=== PATIENT | female | born 1985 | race Caucasian/White ===

== ENCOUNTER 2019-05-20 19:27 | Observation (INO) | payer OTHER ==
[2019-05-20] MEDS ORDERED: NORMAL SALINE 1000 ML 1,000 ML IV ONE (19:54)
[2019-05-20] MEDS ORDERED: ONDANSETRON HCL INJ/PF 4 MG/2 ML SDV IV ONE (19:54)
[2019-05-20] MEDS ORDERED: MORPHINE SULFATE 10 MG/ML INJ IV ONE ×2 (19:54→20:13)
--- NOTE | 2019-05-20 19:57 | ER Document Report ---
ED Medical Screen (RME) - General Chief Complaint: Abdominal Pain Stated Complaint: POSSIBLE APPENDIX RUPTURE Time Seen by Provider: 05/20/19 19:50 Primary Care Provider: DAMION SHARMA MD [Primary Care Provider] - Follow up as needed - [facility] Notes: 05/20/19 19:55 33-year-old female to the emergency department with complaints of right lower quadrant abdominal pain that is getting steadily worse for the past 2 days. She states that 2 days ago she started to have abdominal pain in the middle of her abdomen around her bellybutton. She states that she just had some constipation so she try to take some MiraLAX. She states that she started to feel worse this morning and thought that maybe she was having a stomach virus. She denies any nausea or vomiting. She denies any diarrhea. She states that she has had anorexia. She is only eaten 5 saltines today. She states that the pain then migrated to her right lower side. She states that she went to urgent care and they sent her here for evaluation for appendicitis. She has never had surgery on her abdomen before. She denies any fevers or chills. I performed a brief medical screening exam on the patient and determined that she will need further evaluation by main side provider. I placed initial orders to help expedite her care. Patient with positive tenderness to palpation to the right lower quadrant and suprapubic abdomen. She is guarding. She is very uncomfortable in the triage room. - Related Data Allergies/Adverse Reactions: No Known Allergies Allergy (Verified 09/19/12 20:45) Past Medical History - Past Medical History Cardiac Medical History: Reports: Hx Hypercholesterolemia - Immunizations Hx Diphtheria, Pertussis, Tetanus Vaccination: Yes Physical Exam - Vital signs Vitals: Temp Pulse Resp BP Pulse Ox 97.4 F 83 17 133/81 H 99 05/20/19 19:34 05/20/19 19:34 05/20/19 19:34 05/20/19 19:34 05/20/19 19:34 Course - Vital Signs Vital signs: Temp Pulse Resp BP Pulse Ox 97.4 F 83 17 133/81 H 99 05/20/19 19:34 05/20/19 19:34 05/20/19 19:34 05/20/19 19:34 05/20/19 19:34 Doctor's Discharge - Discharge Referrals: DAMION SHARMA MD [Primary Care Provider] - Follow up as needed
[2019-05-20 20:40] LABS: ABSOLUTE BASOPHILS # (AUTO) 0.1 10^3/uL (0.0-0.2); ABSOLUTE LYMPHOCYTES (AUTO) 1.9 10^3/uL (0.5-4.7); ABSOLUTE MONOCYTES (AUTO) 0.7 10^3/uL (0.1-1.4); ABSOLUTE NEUT (AUTO) 10.3 10^3/uL (1.7-8.2); BASOPHILS % (AUTO) 0.5 % (0-2); EOSINOPHILS % (AUTO) 0.3 % (0-6); HEMATOCRIT 40.4 % (36.0-47.0); HEMOGLOBIN 13.9 g/dL (12.0-15.5); LYMPHOCYTES % (AUTO) 14.5 % (13-45); MEAN CORPUSCULAR HEMOGLOBIN 30.4 pg (27.0-33.4); MEAN CORPUSCULAR HGB CONC 34.3 g/dL (32.0-36.0); MEAN CORPUSCULAR VOLUME 89 fl (80-97); MONOCYTES % (AUTO) 5.5 % (3-13); PLATELET COUNT 277 10^3/uL (150-450); RED BLOOD COUNT 4.57 10^6/uL (3.72-5.28); RED CELL DISTRIBUTION WIDTH 12.7 % (11.5-14.0); SEGMENTED NEUTROPHILS % (AUTO) 79.2 % (42-78); TOTAL CELLS COUNTED % (AUTO) 100 %
--- NOTE | 2019-05-20 21:43 | RADIOLOGY REPORT (SQ) ---
EXAM DESCRIPTION: CT abdomen and pelvis with IV contrast CLINICAL HISTORY: 33 years Female RLQ abd pain COMPARISON: None. TECHNIQUE: Contiguous axial images obtained through the abdomen and pelvis following IV contrast. 90 mL Omnipaque administered IV. Reformatted images obtained. This exam was performed according to our department optimization program which includes automated exposure control, adjustment of the mA and/or kv according to patient size and/or use of iterative reconstruction technique. FINDINGS: The visualized lung bases are clear. The liver appears unremarkable. The spleen and pancreas appear unremarkable. No adrenal masses. The kidneys appear unremarkable. No hydronephrosis. The gallbladder is visualized. No aneurysmal dilatation of the aorta. No bowel obstruction. The appendix appears dilated to a diameter of 1.2 cm on axial imaging. The appendiceal wall appears hyperemic. There are inflammatory changes within the adjacent mesentery. Findings are consistent with acute appendicitis. No free air to suggest perforation. Small volume pelvic free fluid is nonspecific and may be related to inflammatory changes. No suspicious lytic or blastic osseous lesions are identified. IMPRESSION: Findings compatible with acute appendicitis.
--- NOTE | 2019-05-20 21:49 | ER Document Report ---
ED General - General Chief Complaint: Abdominal Pain Stated Complaint: POSSIBLE APPENDIX RUPTURE Time Seen by Provider: 05/20/19 19:50 Primary Care Provider: DAMION SHARMA MD [ACTIVE STAFF] - Follow up as needed Notes: 33-year-old female presents with right lower quadrant pain for the past 3 days. Patient states associated nausea and subjective fever. Denies vomiting, diarrhea, constipation. Patient states she initially thought she may have been constipated and took a laxative with no improvement. Patient went to urgent care who sent her over to the ER for possible appendicitis. Patient denies any abdominal surgeries. - Related Data Allergies/Adverse Reactions: No Known Allergies Allergy (Verified 09/19/12 20:45) Home Medications: synthroid. effexor Past Medical History - Social History Smoking Status: Never Smoker Frequency of alcohol use: Social Family History: Reviewed & Not Pertinent Patient has suicidal ideation: No Patient has homicidal ideation: No - Past Medical History Cardiac Medical History: Reports: Hx Hypercholesterolemia - Immunizations Hx Diphtheria, Pertussis, Tetanus Vaccination: Yes Review of Systems - Review of Systems Notes: Constitutional: Negative for fever. HENT: Negative for sore throat. Eyes: Negative for visual changes. Cardiovascular: Negative for chest pain. Respiratory: Negative for shortness of breath. Gastrointestinal: Positive for abdominal pain and nausea. Negative for vomiting or diarrhea. Genitourinary: Negative for dysuria. Musculoskeletal: Negative for back pain. Skin: Negative for rash. Neurological: Negative for headaches, weakness or numbness. 10 point ROS negative except as marked above and in HPI. Physical Exam - Vital signs Vitals: Temp Pulse Resp BP Pulse Ox 97.4 F 83 17 133/81 H 99 05/20/19 19:34 05/20/19 19:34 05/20/19 19:34 05/20/19 19:34 05/20/19 19:34 - Notes Notes: GENERAL: Well-appearing, well-nourished and in no acute distress. HEAD: Atraumatic, normocephalic. EYES: Pupils equal round and reactive to light, extraocular movements intact, sclera anicteric, conjunctiva are normal. NECK: Normal range of motion, supple without lymphadenopathy or JVD. ABDOMEN: Soft, tenderness to right lower quadrant with guarding. No masses appreciated. EXTREMITIES: Normal range of motion, no pitting or edema. No clubbing or cyanosis. NEUROLOGICAL: Cranial nerves II through XII grossly intact. Normal speech, normal gait. PSYCH: Normal mood, normal affect. SKIN: Warm, Dry, normal turgor, no rashes or lesions noted. Course - Re-evaluation Re-evalutation: 05/20/19 33-year-old female presents with right lower quadrant pain with nausea and subjective fever. Abdomen soft tenderness to right lower quadrant with guarding. PE otherwise unremarkable. Mild leukocytosis. Patient is afebrile. Pain is currently controlled at this time. Ertapenem was ordered. CMP was hemolyzed and so is now being redrawn. Patient is also can provide a urine spec imen to get a urine . 05/20/19 21:[address] shows appendicitis without perforation. 05/20/19 22:[address] De La Garza who will come down to see pt. - Vital Signs Vital signs: Temp Pulse Resp BP Pulse Ox 97.4 F 83 15 119/66 99 05/20/19 19:34 05/20/19 19:34 05/20/19 22:18 05/20/19 20:48 05/20/19 22:19 - Laboratory Result Diagrams: 05/20/19 20:33 05/20/19 22:35 Laboratory results interpreted by me: 05/20/19 05/20/19 20:33 22:10 WBC 13.0 H Absolute Neuts (auto) 10.3 H Seg Neutrophils % 79.2 H Urine Ketones 20 H Urine Blood SMALL H Discharge - Discharge Clinical Impression: Appendicitis Qualifiers: Appendicitis type: acute appendicitis Acute appendicitis type: other Qualified Code(s): K35.890 - Other acute appendicitis without perforation or gangrene Condition: Fair Disposition: ADMITTED INPATIENT Admitting Provider: Surgicalist - Dr. Chico De La Garza Unit Admitted: OR Referrals: DAMION SHARMA MD [ACTIVE STAFF] - Follow up as needed
[2019-05-20] MEDS ORDERED: ERTAPENEM SODIUM INJ 1 GM VIAL IV ONE (21:51)
[2019-05-20 22:43] LABS: APPEARANCE,URINE CLEAR; BILIRUBIN,URINE NEGATIVE (NEGATIVE); COLOR,URINE YELLOW; GLUCOSE, URINE NEGATIVE (NEGATIVE); KETONES,URINE 20 mg/dL (NEGATIVE); LEUKOCYTE ESTERASE,URINE NEGATIVE (NEGATIVE); NITRITE,URINE NEGATIVE (NEGATIVE); PROTEIN,URINE NEGATIVE (NEGATIVE); UROBILINOGEN,URINE NEGATIVE mg/dL (<2.0)
[2019-05-20 22:51] LABS: URINE SPECIFIC GRAVITY > 1.060
--- NOTE | 2019-05-20 22:52 | PDOC H&P ---
History of Present Illness Admission Date/PCP: 05/20/19 Patient complains of: abdominal pain History of Present Illness: DEEDEE STALEY is a 33 year old female3 presents with right lower quadrant pain for the past 3 days. Patient states associated nausea and subjective fever. Denies vomiting, diarrhea, constipation. Patient states she initially thought she may have been constipated and took a laxative with no improvement. Patient went to urgent care who sent her over to the ER for possible appendicitis. Patient denies any abdominal surgeries. Past Medical History Cardiac Medical History: Reports: Hyperlipidema Social History Smoking Status: Never Smoker Family History Family History: Reviewed & Not Pertinent Parental Family History Reviewed: No Children Family History Reviewed: NA Sibling(s) Family History Reviewed.: NA Medication/Allergy Home Medications: Simvastatin [Zocor 10 mg Tablet] 10 mg PO QHS 09/19/12 Allergies/Adverse Reactions: No Known Allergies Allergy (Verified 09/19/12 20:45) Review of Systems Constitutional: ABSENT: as per HPI, anorexia, chills, fatigue, fever(s), headache(s), night sweats, weakness, weight gain, weight loss, other Eyes: ABSENT: as per HPI, visual disturbances, other Ears: ABSENT: as per HPI, hearing changes, other Nose, Mouth, and Throat: ABSENT: as per HPI, headache(s), mouth pain, sore throat, vertigo, other Cardiovascular: ABSENT: as per HPI, chest pain, dyspnea on exertion, edema, orthropnea, palpitations, other Gastrointestinal: PRESENT: abdominal pain Genitourinary: ABSENT: as per HPI, difficulty urinating, dysuria, hematuria, nocturia, other Musculoskeletal: ABSENT: as per HPI, back pain, deformity, joint swelling, muscle weakness, other Integumentary: ABSENT: as per HPI, diaphoresis, erythema, lesions, pruritus, rash, wounds, other Neurological: ABSENT: as per HPI, abnormal gait, abnormal movements, abnormal speech, confusion, convulsions, dizziness, focal weakness, frequent falls, lack of coordination, memory loss, numbness, paresthesias, restless legs, syncope, tingling, tremor(s), vertigo, weakness, other Psychiatric: ABSENT: as per HPI, anxiety, depression, hallucinations, homidical ideation, suicidal ideation, other Endocrine: ABSENT: as per HPI, cold intolerance, flushing, heat intolerance, menstrual abnormalities, polydipsia, polyphagia, polyuria, other Allergic/Immunologic: ABSENT: as per HPI, seasonal rhinorrhea, other Physical Exam Vital Signs: Temp Pulse Resp BP Pulse Ox 97.4 F 83 15 119/66 99 05/20/19 19:34 05/20/19 19:34 05/20/19 22:18 05/20/19 20:48 05/20/19 22:19 Intake & Output 05/19/19 05/20/19 05/21/19 06:59 06:59 06:59 Weight 79.379 kg General appearance: PRESENT: mild distress Head exam: PRESENT: normocephalic Eye exam: PRESENT: EOMI Ear exam: PRESENT: normal external ear exam Mouth exam: PRESENT: moist Neck exam: PRESENT: full ROM Respiratory exam: PRESENT: clear to auscultation [place] Cardiovascular exam: PRESENT: RRR Pulses: PRESENT: normal radial pulses, normal femoral pulses Vascular exam: PRESENT: normal capillary refill GI/Abdominal exam: PRESENT: firm, guarding, tenderness - rlq Rectal exam: PRESENT: deferred Extremities exam: PRESENT: full ROM Musculoskeletal exam: PRESENT: full ROM Neurological exam: PRESENT: alert, awake, oriented to person, oriented to place Psychiatric exam: PRESENT: appropriate affect Skin exam: PRESENT: dry Results Laboratory Results: 05/20/19 20:33 05/20/19 05/20/19 05/20/19 20:33 20:33 20:33 WBC 13.0 H RBC 4.57 Hgb 13.9 Hct 40.4 MCV 89 MCH 30.4 MCHC 34.3 RDW 12.7 Plt Count 277 Seg Neutrophils % 79.2 H Sodium Cancelled Potassium Cancelled Chloride Cancelled Carbon Dioxide Cancelled Anion Gap Cancelled BUN Cancelled Creatinine Cancelled Est GFR ( Amer) Cancelled Est GFR (Non-Af Amer) Cancelled Glucose Cancelled Calcium Cancelled Total Bilirubin Cancelled AST Cancelled Alkaline Phosphatase Cancelled Total Protein Cancelled Albumin Cancelled Serum HCG, Qual Cancelled Urine Color Urine Appearance Urine pH Urine Protein Urine Glucose (UA) Urine Ketones Urine Blood Urine Nitrite Ur Leukocyte Esterase Urine WBC (Auto) Urine RBC (Auto) 05/20/19 22:10 WBC RBC Hgb Hct MCV MCH MCHC RDW Plt Count Seg Neutrophils % Sodium Potassium Chloride Carbon Dioxide Anion Gap BUN Creatinine Est GFR ( Amer) Est GFR (Non-Af Amer) Glucose Calcium Total Bilirubin AST Alkaline Phosphatase Total Protein Albumin Serum HCG, Qual Urine Color YELLOW Urine Appearance CLEAR Urine pH 8.0 Urine Protein NEGATIVE Urine Glucose (UA) NEGATIVE Urine Ketones 20 H Urine Blood SMALL H Urine Nitrite NEGATIVE Ur Leukocyte Esterase NEGATIVE Urine WBC (Auto) 1 Urine RBC (Auto) 3 Impressions: Abdomen/Pelvis CT 05/20/19 19:53 IMPRESSION: Findings compatible with acute appendicitis. Assessment & Plan - Diagnosis (1) Appendicitis Qualifiers: Appendicitis type: acute appendicitis Acute appendicitis type: other Qualified Code(s): K35.890 - Other acute appendicitis without perforation or gangrene; K35.89 - Other acute appendicitis - Plan Summary Plan Summary: impression acute appendicitis plan to or for laparoscopic appendectomy risks beniftis of bleeding, injury to adjacent organs, ureters, small bowel bladder, kidneysl, colon, mi, stroke, discussed and she agrees to proceed.
[2019-05-20 23:15] LABS: ALBUMIN 3.8 g/dL (3.5-5.0); ALKALINE PHOSPHATASE 74 U/L (38-126); ANION GAP 11 (5-19); ASPARTATE AMINO TRANSFERASE 23 U/L (14-36); BILIRUBIN,DIRECT 0.2 mg/dL (0.0-0.4); BILIRUBIN,TOTAL 0.6 mg/dL (0.2-1.3); BLOOD UREA NITROGEN 9 mg/dL (7-20); CALCIUM 9.3 mg/dL (8.4-10.2); CARBON DIOXIDE 23 mmol/L (22-30); CHLORIDE 103 mmol/L (98-107); GLUCOSE 103 mg/dL (75-110); POTASSIUM 3.7 mmol/L (3.6-5.0); TOTAL PROTEIN 6.7 g/dL (6.3-8.2)
[2019-05-21] MEDS ORDERED: MIDAZOLAM 2 MG/2 ML INJ ONE (00:14)
[2019-05-21] MEDS ORDERED: FENTANYL CITRATE INJ/PF 250 MCG/5 ML AMPULE ONE (00:14)
[2019-05-21] MEDS ORDERED: PROPOFOL INJ 200 MG/20 ML VIAL IV ONE (00:15)
[2019-05-21] MEDS ORDERED: HYDROMORPHONE HCL INJ/PF 2 MG/ML AMPULE ONE (00:15)
[2019-05-21] MEDS ORDERED: MORPHINE SULFATE 10 MG/ML INJ IV PRN ×2 (00:52→01:39)
[2019-05-21] MEDS ORDERED: PROMETHAZINE HCL INJ 25 MG/1 ML VIAL IV PRN (00:52)
[2019-05-21] MEDS ORDERED: FENTANYL CITRATE INJ/PF 100 MCG/2 ML AMPUL IV PRN ×3 (00:52)
[2019-05-21] MEDS ORDERED: DIPHENHYDRAMINE HCL 50 MG/ML VIAL IV PRN (00:52)
[2019-05-21] MEDS ORDERED: MEPERIDINE HCL/PF INJ 25 MG/1 ML DISP.SYRIN IV PRN (00:52)
[2019-05-21] MEDS ORDERED: BUPIVACAINE INJ/PF LIPOSOME/PF 266 MG/20 ML SDV ONE (01:04)
[2019-05-21] MEDS ORDERED: OXYCODONE-ACETAMINOPHEN 5-325 MG TABLET PO PRN (01:39)
[2019-05-21] MEDS ORDERED: ACETAMINOPHEN 1,000 MG/100 ML RTUPB IV ONE ×2 (01:39→02:00)
[2019-05-21] MEDS ORDERED: POTASSI CL 20 MEQ/D5-1/2NS 1L 1,000 ML IV PRN (01:39)
[2019-05-21] MEDS ORDERED: ONDANSETRON HCL INJ/PF 4 MG/2 ML SDV IV PRN (01:39)
[2019-05-21] MEDS: FENTANYL CITRATE INJ/PF 100 MCG/2 ML AMPUL ONE ×2 (01:40→01:45)
--- NOTE | 2019-05-21 01:48 | Operative Report ---
Nonrecallable Operative Report DATE OF SURGERY: 05/21/19 PREOPERATIVE DIAGNOSIS: Acute appendicitis POSTOPERATIVE DIAGNOSIS: Acute appendicitis OPERATION: Laparoscopic appendectomy SURGEON: LIZ KRAMER ANESTHESIA: GA TISSUE REMOVED OR ALTERED: Appendix COMPLICATIONS: None ESTIMATED BLOOD LOSS: 5 cc INTRAOPERATIVE FINDINGS: Acute separative appendicitis PROCEDURE: Patient was brought to the operating room awake alert stable condition placed in the operative supine position induced under general anesthesia and intubated. After appropriate timeout and site verification the varies needle was placed into the umbilicus and the abdomen insufflated with 6 L of CO2 gas. An infraumbilical 10 mm incision was made with a 15 blade and a 10 mm port placed in the abdominal cavity intra-abdominal visualization revealed no evidence of Veress needle trocar injury left lower quadrant 11 mm port placed under direct vision and a left-sided 5 mm port the appendix and cecum were identified appendix was placed on traction the mesoappendix was taken down with one firing the Endo DIA stapler with a vascular then we came across the base of the appendix on the cecum with one firing of the DIA stapler with a blue load appendix was then placed in an Endobag and removed through the left lower quadra nt port site the pelvis and right lower quadrant irrigated with normal saline suctioned dry hemostasis noted to be intact the 210 mm fascial defects were then closed with 0 Vicryl and then all 3 skin incisions were closed with intracuticular 4-0 Biosyn there were anesthetized with Exparel lidocaine. And Steri-Strips completed the procedure estimated blood loss was less than 5 cc sponge needle counts were correct x2 the patient was awakened in the operative extubated transferred recovery in stable condition no complications
[2019-05-21] MEDS ORDERED: ROCURONIUM BROMIDE INJ 50 MG/5 ML VIAL IV ONE (05:00)
[2019-05-21] MEDS ORDERED: SUCCINYLCHOLINE CHLORIDE INJ 200 MG/10 ML VIAL ONE (05:00)
--- NOTE | 2019-05-21 09:15 | PDOC PROGRESS REPORT ---
Subjective Progress Note for:: 05/21/19 Subjective:: Patient feels better, voiding, has not been out of bed yet. Having some pain. Reason For Visit: APPENDICITIS Physical Exam Vital Signs: Temp Pulse Resp BP Pulse Ox 97.6 F 62 18 87/40 L 98 05/21/19 07:16 05/21/19 07:16 05/21/19 07:16 05/21/19 07:16 05/21/19 07:16 Intake & Output 05/20/19 05/21/19 05/22/19 06:59 06:59 06:59 Intake Total 2050 Output Total 805 Balance 1245 Weight 80.6 kg General appearance: PRESENT: no acute distress, other - Groggy GI/Abdominal exam: PRESENT: other - Abdomen examined; dressing dry and intact. Abdomen appropriately tender for immediate postop Results Laboratory Results: 05/20/19 20:33 05/20/19 22:35 05/20/19 05/20/19 05/20/19 20:33 20:33 20:33 WBC 13.0 H RBC 4.57 Hgb 13.9 Hct 40.4 MCV 89 MCH 30.4 MCHC 34.3 RDW 12.7 Plt Count 277 Seg Neutrophils % 79.2 H Sodium Cancelled Potassium Cancelled Chloride Cancelled Carbon Dioxide Cancelled Anion Gap Cancelled BUN Cancelled Creatinine Cancelled Est GFR ( Amer) Cancelled Est GFR (Non-Af Amer) Cancelled Glucose Cancelled Calcium Cancelled Total Bilirubin Cancelled AST Cancelled Alkaline Phosphatase Cancelled Total Protein Cancelled Albumin Cancelled Serum HCG, Qual Cancelled Urine Color Urine Appearance Urine pH Ur Specific [place] Urine Protein Urine Glucose (UA) Urine Ketones Urine Blood Urine Nitrite Ur Leukocyte Esterase Urine WBC (Auto) Urine RBC (Auto) 05/20/19 05/20/19 22:10 22:35 WBC RBC Hgb Hct MCV MCH MCHC RDW Plt Count Seg Neutrophils % Sodium 137.0 Potassium 3.7 Chloride 103 Carbon Dioxide 23 Anion Gap 11 BUN 9 Creatinine 0.63 Est GFR ( Amer) > 60 Est GFR (Non-Af Amer) Glucose 103 Calcium 9.3 Total Bilirubin 0.6 AST 23 Alkaline Phosphatase 74 Total Protein 6.7 Albumin 3.8 Serum HCG, Qual Urine Color YELLOW Urine Appearance CLEAR Urine pH 8.0 Ur Specific [place] > 1.060 Urine Protein NEGATIVE Urine Glucose (UA) NEGATIVE Urine Ketones 20 H Urine Blood SMALL H Urine Nitrite NEGATIVE Ur Leukocyte Esterase NEGATIVE Urine WBC (Auto) 1 Urine RBC (Auto) 3 Impressions: Abdomen/Pelvis CT 05/20/19 19:53 IMPRESSION: Findings compatible with acute appendicitis. Assessment & Plan - Diagnosis (1) Appendicitis Qualifiers: Appendicitis type: acute appendicitis Acute appendicitis type: other Qualified Code(s): K35.890 - Other acute appendicitis without perforation or gangrene; K35.89 - Other acute appendicitis Is this a current diagnosis for this admission?: Yes Plan: Impression: Status post laparoscopic appendectomy for acute appendicitis, with suppuration, doing well, no complications thus far. Recommendations: 1. Up and out of bed 2. Advance diet 3. Anticipate discharge home later today after criteria met - Time Time Spent with patient: 15-24 minutes Medications reviewed and adjusted accordingly: Yes Anticipated discharge: Home
[2019-05-21] MEDS ORDERED: LEVOTHYROXINE SODIUM 0.15 MG TABLET PO SCH (10:00)
[2019-05-21] MEDS ORDERED: LEVOTHYROXINE SODIUM 0.112 MG TABLET PO SCH (11:00)
--- NOTE | 2019-05-21 12:12 | PDOC DISCHARGE SUMMARY ---
General - Admit/Disc Date/PCP Admission Date/Primary Care Provider: 05/21/19 00:10 Discharge Date: 05/21/19 - Discharge Diagnosis Final Diagnosis: Acute appendicitis - Assessment Summary: The patient is a 33-year-old overweight female with history of abdominal pain and anorexia. She was seen in the emergency department was found to have abdominal tenderness and leukocytosis. She had a CT scan of the abdomen and pelvis which showed findings consistent with acute appendicitis. He was admitted to the acute care surgical service, taken to the operating room by Dr. Chico De La Garza and underwent laparoscopic appendectomy. She was found to have acute, suppurative appendicitis. Patient tolerated procedure well. Postoperatively she had adequate pain control, diet was advanced and she tolerated this well.. By the afternoon of the first postoperative day she was ready for discharge home. Patient will follow up with Dr. Chico De La Garza, [facility], 1 to 2 weeks. She will shower, take pre-operative medications, and Toradol for which a prescription has been provided. She will call [facility] in 48 hours to make the appointment. - Additional Information Resuscitation Status: Full Code Discharge Diet: As Tolerated Discharge Activity: Activity As Tolerated, Other - No heavy lifting Referrals: DAMION SHARMA MD [ACTIVE STAFF] - Follow up as needed Home Medications: Levothyroxine Sodium [Synthroid 0.112 mg Tablet] 112 mcg PO DAILY 05/21/19 Venlafaxine HCl ER [Effexor Xr 75 mg Cap.sr] 75 mg PO DAILY 05/21/19 History of Present Illiness History of Present Illness: DEEDEE STALEY is a 33 year old female Physical Exam Vital Signs: Temp Pulse Resp BP Pulse Ox 97.8 F 59 L 18 92/53 L 100 05/21/19 11:25 05/21/19 11:25 05/21/19 11:25 05/21/19 11:25 05/21/19 11:25 Intake & Output 05/20/19 05/21/19 05/22/19 06:59 06:59 06:59 Intake Total 0 Output Total 805 Balance 1245 Weight 80.6 kg Results Laboratory Results: WBC 13.0 10^3/uL (4.0-10.5) H 05/20/19 20:33 RBC 4.57 10^6/uL (3.72-5.28) 05/20/19 20:33 Hgb 13.9 g/dL (12.0-15.5) 05/20/19 20: Hct 40.4 % (36.0-47.0) 05/20/19 20: MCV 89 fl (80-97) 05/20/19: MCH 30.4 pg (27.0-33.4) 05/20/19: MCHC 34.3 g/dL (32.0-36.0) 05/20/19 20: RDW 12.7 % (11.5-14.0) 05/20/19 20: Plt Count 277 10^3/uL (150-450) 05/20/19 20: Lymph % (Auto) 14.5 % (13-45) 05/20/19: [place] % (Auto) 5.5 % (3-13) 05/20/19 20: Eos % (Auto) 0.3 % (0-6) 05/20/19: Baso % (Auto) 0.5 % (0-2) 05/20/19 20:33 Absolute Neuts (auto) 10.3 10^3/uL (1.7-8.2) H 05/20/19 20: Absolute Lymphs (auto) 1.9 10^3/uL (0.5-4.7) 05/20/19: Absolute Monos (auto) 0.7 10^3/uL (0.1-1.4) 05/20/19: Absolute Eos (auto) 0.0 10^3/uL (0.0-0.6) 05/20/19 20: Absolute Basos (auto) 0.1 10^3/uL (0.0-0.2) 05/20/19:33 Seg Neutrophils % 79.2 % (42-78) H 05/20/19 20:33 Sodium 137.0 mmol/L (137-145) 05/20/19 22:35 Potassium 3.7 mmol/L (3.6-5.0) 05/20/19 22:35 Chloride 103 mmol/L (98-107) 05/20/19 22:35 Carbon Dioxide 23 mmol/L (22-30) 05/20/19 22:35 Anion Gap 11 (5-19) 05/20/19 22:35 BUN 9 mg/dL (7-20) 05/20/19 22:35 Creatinine 0.63 mg/dL (0.52-1.25) 05/20/19 22:35 Est GFR ( Amer) > 60 (>60) 05/20/19 22:35 Est GFR (Non-Af Amer) Cancelled 05/20/19 20:33 Est GFR (MDRD) Non-Af > 60 (>60) 05/20/19 22:35 Glucose 103 mg/dL (75-110) 05/20/19 22:35 Calcium 9.3 mg/dL (8.4-10.2) 05/20/19 22:35 Total Bilirubin 0.6 mg/dL (0.2-1.3) 05/20/19 22:35 Direct Bilirubin 0.2 mg/dL (0.0-0.4) 05/20/19 22:35 Neonat Total Bilirubin Not Reportable 05/20/19 22:35 Neonat Direct Bilirubin Not Reportable 05/20/19 22:35 Neonat Indirect Bili Not Reportable 05/20/19 22:35 AST 23 U/L (14-36) 05/20/19 22:35 ALT 41 U/L (<35) 05/20/19 22:35 Alkaline Phosphatase 74 U/L (38-126) 05/20/19 22:35 Total Protein 6.7 g/dL (6.3-8.2) 05/20/19 22:35 Albumin 3.8 g/dL (3.5-5.0) 05/20/19 22:35 EGFR Cancelled 05/20/19 20:33 Serum HCG, Qual Cancelled 05/20/19 20:33 Urine Color YELLOW 05/20/19 22:10 Urine Appearance CLEAR 05/20/19 22:10 Urine pH 8.0 (5.0-9.0) 05/20/19 22:10 Ur Specific [place] > 1.060 05/20/19 22:10 Urine Protein NEGATIVE mg/dL (NEGATIVE) 05/20/19 22:10 Urine Glucose (UA) NEGATIVE mg/dL (NEGATIVE) 05/20/19 22:10 Urine Ketones 20 mg/dL (NEGATIVE) H 05/20/19 22:10 Urine Blood SMALL (NEGATIVE) H 05/20/19 22:10 Urine Nitrite NEGATIVE (NEGATIVE) 05/20/19 22:10 Urine Bilirubin NEGATIVE (NEGATIVE) 05/20/19 22:10 Urine Urobilinogen NEGATIVE mg/dL (<2.0) 05/20/19 22:10 Ur Leukocyte Esterase NEGATIVE (NEGATIVE) 05/20/19 22:10 Urine WBC (Auto) 1 /HPF 05/20/19 22:10 Urine RBC (Auto) 3 /HPF 05/20/19 22:10 Squamous Epi Cells Auto 3 /HPF 05/20/19 22:10 Urine Mucus (Auto) RARE /LPF 05/20/19 22:10 Urine Ascorbic Acid NEGATIVE (NEGATIVE) 05/20/19 22:10 Urine HCG, Qual NEGATIVE (NEGATIVE) 05/20/19 22:10 Impressions: Abdomen/Pelvis CT 05/20/19 19:53 IMPRESSION: Findings compatible with acute appendicitis.
[2019-05-21 13:04] VITALS: BP 98/56
== END 2019-05-21 13:45 | disposition home or self-care (01) ==
LOC: ER 19:27 → INTOOBSV 05-21 00:10 → EH 05-21 00:10 → 2N 05-21 02:51
PROVIDERS: ADMIT Surgery; ATTEND Surgery
DX: K35.30 Acute appendicitis with localized peritonitis, without perforation or gangrene (principal); E66.3 Overweight; R63.0 Anorexia; E78.5 Hyperlipidemia, unspecified; Z79.899 Other long term (current) drug therapy
CPT/HCPCS: 99284; 96361; 96375; 96365; 36415; 87040; 85025; 81025; 80053; 81001; 88304 ×2; 74177; 94799; 00840; 44970; G0378 ×2; J2250; J3490; J3010 ×2; J1335; J2270 ×2; J1170; J3480; J0330; J2405; J7030; J2704; J0131; C9290; 840